=== PATIENT | female | born 2000 | race American Indian/Alaskan Native ===

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

== ENCOUNTER 2020-04-21 08:51 | Emergency (ER) | payer MEDICAID, OTHER ==
[2020-04-21] MEDS ORDERED: Naloxone 2 MG/2 ML Syringe IVPUSH ONE (08:55)
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
[2020-04-21] MEDS ORDERED: Sodium Chloride 0.9% 10 ML Syringe FLUSH PRN (08:56)
[2020-04-21] MEDS ORDERED: Sodium Chloride 0.9% 1,000 ML IV ONE (08:56)
[2020-04-21 09:27] LABS: AMPHETAMINES,URINE NEGATIVE (NEGATIVE); BARBITURATES,URINE NEGATIVE (NEGATIVE); BENZODIAZEPINE,URINE NEGATIVE (NEGATIVE); MDMA (ECSTASY), URINE NEGATIVE (NEGATIVE); METHADONE,URINE NEGATIVE (NEGATIVE); METHAMPHETAMINES,URINE NEGATIVE (NEGATIVE); OPIATES,URINE NEGATIVE (NEGATIVE); OXYCODONE,URINE NEGATIVE (NEGATIVE); PHENCYCLIDINE,URINE NEGATIVE (NEGATIVE); TCA,URINE NEGATIVE (NEGATIVE)
[2020-04-21 09:34] LABS: PTT,PARTIAL THROMBOPLSTIN TIME 24.5 SEC (22.0-34.0)
[2020-04-21 09:38] LABS: ANION GAP 16.9 mEq/L (7-13); CHLORIDE,CL 106 mmol/L (98-107); SODIUM,NA 141 mmol/L (136-145)
[2020-04-21] MEDS ORDERED: Iopamidol 612 MG/ML 100 ML Bottle IVPUSH ONE (09:38)
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
== END 2020-04-21 10:42 | disposition home or self-care (01) ==
LOC: DL.ED 08:51
DX: S00.81XA Abrasion of other part of head, initial encounter (principal); F10.120 Alcohol abuse with intoxication, uncomplicated; F17.210 Nicotine dependence, cigarettes, uncomplicated; Y90.7 Blood alcohol level of 200-239 mg/100 ml; V43.63XA Car passenger injured in collision with pick-up truck in traffic accident, initial encounter
CPT/HCPCS: 36415; 51702; 70450; 70486; 71260; 72125; 74177; 80053; 80305-QW; 80307; 81003; 81025; 82150; 83690; 85025; 85610; 85730; 93005; 93010; 96374; 99284; 99285-25; J2310; J7030; Q9967

== ENCOUNTER 2020-12-27 14:22 | Emergency (ER) | payer MEDICAID ==
--- NOTE | 2020-12-27 14:43 | EDM.PDOC ---
ED HPI GENERAL MEDICAL PROBLEM - General Stated Complaint: AMBULANCE Time Seen by Provider: 12/27/20 15:00 Source of Information: Reports: Patient History Limitations: Reports: No Limitations - History of Present Illness INITIAL COMMENTS - FREE TEXT/NARRATIVE: 20 y/o F brought in by EMS for near syncope at work. Pt was at a daycare when she developed R lower abd pn and felt her body go numb. Pt laid down on the floor and felt like she was going to pass out. She report no food today and had been drinking an energy drink which she does not do regularly. Currently she is symptom free here in the ER and would not like to be examined or treated. She would like to sign out AMA. She states she has been here several times and nothing was ever found. I informed her that we would be happy to work up her symptoms but she again declined and asked to leave. 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: Musculoskeletal History: Reports: None Neurological History: Reports: None Psychiatric History: Reports: Suicide Attempt Endocrine/Metabolic History: Reports: None Hematologic History: Reports: None Immunologic History: Reports: None Oncologic (Cancer) History: Reports: None Dermatologic History: Reports: None - Infectious Disease History Infectious Disease History: Reports: None - Past Surgical History Head Surgeries/Procedures: Reports: None HEENT Surgical History: Reports: None Social & Family History - Family History Family Medical History: No Pertinent Family History Respiratory: Reports: Asthma OBGYN: Reports: Other (See Below) Other OBGYN Family History: ovarian CA Endocrine/Metabolic: Reports: Diabetes, type II Other Endocrine/Metabolic Family History: grandmother and grandfather on mom's side. Oncologic: Reports: Cervix, Ovarian Other Oncologic Family History: mom - Caffeine Use Caffeine Use: Reports: None - Living Situation & Occupation Living situation: Reports: with Family Occupation: Student ED ROS GENERAL - Review of Systems Review Of Systems: Unable To Obtain Reason Not Obtained: left AMA - Physical Exam Exam: Not Obtained Reason Not Obtained: Left AMA Departure - Departure Time of Disposition: :04 Disposition: Against Medical Advice 07 Clinical Impression: Left against medical advice - Discharge Information *PRESCRIPTION DRUG MONITORING PROGRAM REVIEWED*: Not Applicable *COPY OF PRESCRIPTION DRUG MONITORING REPORT IN PATIENT GET: Not Applicable Forms: Refusal of Care AMA
[2020-12-27 15:01] VITALS: BP 99/61; PULSE 60
== END 2020-12-27 15:15 | disposition left against medical advice (07) ==
LOC: DL.ED 14:22
DX: R55 Syncope and collapse (principal); R10.31 Right lower quadrant pain
CPT/HCPCS: 99284

== ENCOUNTER 2021-03-23 11:32 | Day surgery (SDC) | payer MEDICAID ==
[~2021-03-23 11:32] MED LIST changes: +Lactated Ringers 1,000 ML IV SCH; -Misoprostol 50 MCG (1/2 of 100 MCG) Tab VAG ONE
[2021-03-23] MEDS ORDERED: Dexamethasone 4 MG/ML SDV IV ONE (11:33)
[2021-03-23] MEDS ORDERED: Ondansetron 4 MG/2 ML SDV IV ONE (11:33)
[2021-03-23] MEDS ORDERED: Propofol 200 MG/20 ML SDV IV ONE (11:33)
[2021-03-23] MEDS ORDERED: Midazolam 1 MG/ML 2 ML SDV IV ONE (11:33)
[2021-03-23] MEDS ORDERED: Ketorolac 30 MG/ML SDV IVPUSH ONE (11:33)
[2021-03-23] MEDS ORDERED: fentaNYL 100 MCG/2 ML SDV IV ONE (11:33)
[2021-03-23] MEDS ORDERED: Silver Nitrate Applicator Each ONE ×2 (11:38→11:39)
[2021-03-23] MEDS ORDERED: Ferric Subsulfate Topical Soln 8 GM (8 ML) Bottle ONE (11:38)
[2021-03-23] MEDS ORDERED: Oxytocin/Normal Saline 0 UNIT/0 ML BAG ONE (11:39)
[2021-03-23] MEDS ORDERED: Lidocaine 0.5% with EPINEPHrine 1:200,000 50 ML MDV ONE (11:39)
[2021-03-23] MEDS ORDERED: Doxycycline Monohydrate 100 MG Cap PO ONE (12:45)
--- NOTE | 2021-03-23 12:48 | PCM.HP ---
H&P History of Present Illness - General Date of Service: 03/23/21 - History of Present Illness Initial Comments - Free Text/Narative: Romie is a 20 year old with twin gestation spontaneous , presenting for D&C. - Related Data Allergies/Adverse Reactions: Allergies Allergy/AdvReac Type Severity Reaction Status Date / Time No Known Allergies Allergy Verified 03/23/21 08:03 Home Medications: Home Meds . 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 Musculoskeletal History: Reports: None Neurological History: Reports: None Psychiatric History: Reports: Suicide Attempt Endocrine/Metabolic History: Reports: None Hematologic History: Reports: None Immunologic History: Reports: None Oncologic (Cancer) History: Reports: None Dermatologic History: Reports: None - Infectious Disease History Infectious Disease History: Reports: Chicken Pox - Past Surgical History Head Surgeries/Procedures: Reports: None HEENT Surgical History: Reports: None Cardiovascular Surgical History: Reports: None Respiratory Surgical History: Reports: None GI Surgical History: Reports: None Female Surgical History: Reports: None Endocrine Surgical History: Reports: None Neurological Surgical History: Reports: None Musculoskeletal Surgical History: Reports: None Oncologic Surgical History: Reports: None Dermatological Surgical History: Reports: None Social & Family History - Family History Family Medical History: No Pertinent Family History Respiratory: Reports: Asthma OBGYN: Reports: Other (See Below) Other OBGYN Family History: ovarian CA Endocrine/Metabolic: Reports: Diabetes, type II Other Endocrine/Metabolic Family History: grandmother and grandfather on mom's side. Oncologic: Reports: Cervix, Ovarian Other Oncologic Family History: mom - Tobacco Use Tobacco Use Status *Q: Former Tobacco User - Caffeine Use Caffeine Use: Reports: None Other Caffeine Use: none - Recreational Drug Use Recreational Drug Use: No Drug Use in Last 12 Months: No - Living Situation & Occupation Living situation: Reports: with Family Occupation: Student Exam - Vital Signs Vital Signs: Last Vital Signs Temp 98.4 F 03/23/21 10:58 Pulse 68 03/23/21 10:58 Resp 16 03/23/21 10:58 BP 103/53 L 03/23/21 10:58 Pulse Ox 99 03/23/21 10:58 Weight: 60.781 kg - Patient Data Lab Results Last 24 hrs: Laboratory Results - last 24 hr 03/23/21 03/23/21 Range/Units 10:55 11:16 WBC 8.7 (5.0-10.0) 10^3/uL RBC 4.06 L (4.2-5.4) 10^6/uL Hgb 12.1 (12.0-16.0) g/dL Hct 35.2 L (37.0-47.0) % MCV 86.7 D (80-100) fL MCH 29.8 (27.0-34.0) pg MCHC 34.4 (33.0-35.0) g/dL Plt Count 314 (150-450) 10^3/uL SARS-CoV-2 RNA (JEREMY) Negative (NEGATIVE) Result Diagrams: 03/23/21 11:16 Orders Last 24hrs: Active Orders 24 hr Category Date Time Status Lactated Ringers [Ringers, Lactated] 1,000 ml Med 03/23/21 11:00 Active IV ASDIRECTED Medication Orders Lactated Ringer's (Ringers, Lactated) 1,000 mls @ 75 mls/hr IV ASDIRECTED HOLGER
--- NOTE | 2021-03-27 09:12 | OR ---
DATE: 03/23/2021 TIME: Approximately 1330 hours. CREDIT CARD ASSOCIATE: Jessica Fenton MS3 PREPROCEDURE DIAGNOSIS: Missed twin-gestation measuring 9 weeks 4 days' gestational age. POSTPROCEDURE DIAGNOSIS: Status post suction dilation and evacuation. PROCEDURE: Suction dilation and evacuation. FINDINGS: 10 to 12 weeks' size mobile uterus, normal shape and contour, anteverted, sounding to 11 cm in length, uterus involuted appropriately postoperatively. SPECIMENS: Products of conception. ANESTHESIA: MAC. COMPLICATIONS: None. FLUIDS: 900 mL crystalloid. DRAINS: Straight cath at onset of procedure for I think 25 mL of clear yellow urine. ESTIMATED BLOOD LOSS: 20 mL. INDICATION: Romie Miller is a 20-year-old G2, P1-0-1-1 woman, who presented to clinic earlier this week with Dr. Sanders following an ultrasound with the above findings of a missed in the setting of a twin gestation. Management options had been discussed with Dr. Sanders at that time. The patient elected to proceed with suction D and E for completion of her miscarriage. Please see preoperative H and P update for further details. Written informed consent was obtained. PROCEDURE IN DETAIL: The patient was taken to OR #2, where following patient identification, MAC anesthesia was placed without difficulty and found to be adequate. She was positioned in dorsal lithotomy position and her legs placed into a neurologically neutral position using the Yellofins. She received 200 mg oral doxycycline for infection prophylaxis. She was prepped and draped with an antiseptic solution in the usual sterile fashion. The patient's bladder was drained with a red rubber catheter using sterile technique, and following surgical time-out with all parties in agreement to proceed, Auvard and Garsia speculums were placed to visualize the cervix, which was grasped anteriorly with a tenaculum. The uterus was sounded to a depth of 11 cm, and the cervix was gently dilated with Hegar dilators to a dilation of 12 mm. A rigid, curved 12 mm Karman curette was advanced to the fundus gently and connected to the Timeliner electric aspirator, and the endometrium was curetted 4 separate times for return of a large amount of white and red tissue until the endometrium felt gritty throughout. The endometrium was then gently curetted with several gentle passes using the Garsia curette with return of minimal clot or decidua. Tenaculum sites remained hemostatic with pressure. Bleeding from the os was very minimal, and bimanual exam demonstrated an approximately [id number], firm, involuted, nonboggy uterus. Sponge, needle, and instrument counts were reported as correct x2. The patient did receive Toradol. The patient tolerated the procedure very well and was subsequently transferred to the recovery room in stable condition, where upon recovery she was discharged home in good condition. [facility] /[id number]
[2021-03-28 07:56] VITALS: BP 91/57; PULSE 67
== END 2021-03-23 15:15 | disposition home or self-care (01) ==
LOC: DL.SDS 11:32
PROVIDERS: ATTEND Student in an Organized Health Care Education/Training Program
DX: O02.1 Missed abortion (principal); Z3A.09 9 weeks gestation of pregnancy; Z01.812 Encounter for preprocedural laboratory examination; Z20.822 Contact with and (suspected) exposure to COVID-19
CPT/HCPCS: 36415; 59820; 85027; 87635; A9270; J1100; J1885; J2250; J2405; J2704; J3010; J7120; U0002

== ENCOUNTER 2022-07-23 00:01 | Inpatient (IN) | payer BC, MEDICAID ==
[2022-07-23] MEDS ORDERED: fentaNYL 100 MCG/2 ML SDV IVPUSH PRN (00:09)
[2022-07-23] MEDS ORDERED: Carboprost Tromethamine 250 MCG/1 ML Amp IM PRN (00:09)
[2022-07-23] MEDS ORDERED: Acetaminophen 325 MG Tab PO PRN ×2 (00:09→12:27)
[2022-07-23] MEDS ORDERED: Sodium Chloride 0.9% 10 ML Syringe FLUSH PRN (00:09)
[2022-07-23] MEDS ORDERED: Ondansetron 4 MG/2 ML SDV IVPUSH PRN (00:09)
[2022-07-23] MEDS ORDERED: Nalbuphine 20 MG/1 ML Amp IM PRN (00:09)
[2022-07-23] MEDS ORDERED: Tranexamic Acid 1,000 MG in Sodium Chloride 0.9% 100 ML IV PRN (00:09)
[2022-07-23] MEDS ORDERED: Misoprostol 400 MCG (4 X 100 MCG TAB) RECTAL PRN (00:09)
[2022-07-23] MEDS ORDERED: Methylergonovine 0.2 MG/1 ML Amp IM PRN (00:09)
[2022-07-23] MEDS ORDERED: Lidocaine 1% 30 ML SDV INJECT PRN (00:09)
[2022-07-23] MEDS ORDERED: Lactated Ringers 1,000 ML IV ONE (00:09)
[2022-07-23] MEDS ORDERED: Misoprostol 50 MCG (1/2 of 100 MCG) Tab VAG ONE (00:15)
[2022-07-23] MEDS ORDERED: Lactated Ringers 1,000 ML IV SCH (00:15)
[2022-07-23] MEDS ORDERED: Misoprostol 25 MCG (1/4 of 100 MCG) Tab VAG PRN (00:15)
[2022-07-23] MEDS ORDERED: Sodium Bicarbonate 4.2% 2.5 MEQ/5 ML SDV ONE (08:19)
[2022-07-23] MEDS ORDERED: Bupivacaine 0.25% 10 ML SDV ONE (08:19)
[2022-07-23] MEDS ORDERED: Ondansetron 4 MG/2 ML SDV IV ONE (08:22)
[2022-07-23] MEDS ORDERED: Sodium Bicarbonate 4.2% 2.5 MEQ/5 ML SDV IV ONE (09:05)
[2022-07-23] MEDS ORDERED: Bupivacaine 0.25% 10 ML SDV INJECT ONE (09:05)
[2022-07-23] MEDS ORDERED: ePHEDrine 50 MG/ML SDV IVPUSH PRN (09:22)
[2022-07-23] MEDS ORDERED: Phenylephrine HCl In 0.9% NaCl 1 MG/10 ML Syringe IVPUSH PRN (09:22)
[2022-07-23] MEDS ORDERED: Ropivacaine 200 MG in Premix Bag 1 BAG EPIDUR SCH (09:30)
[2022-07-23] MEDS: Oxytocin/Normal Saline 30 UNIT/500 ML BAG IV SCH ×2 (10:28→11:46)
[2022-07-23] MEDS ORDERED: Benzocaine/Menthol 20%-0.5% Spray 78 GM Cannister TOP PRN (12:27)
[2022-07-23] MEDS ORDERED: Simethicone 80 MG Tab.Chew PO PRN (12:27)
[2022-07-23] MEDS ORDERED: Oxytocin 10 Units/1 ML SDV IM PRN (12:27)
[2022-07-23] MEDS: Docusate Sodium 100 MG Cap PO PRN (23:22)
[2022-07-23] MEDS: Ibuprofen 800 MG Tab PO PRN (23:22)
[2022-07-24] MEDS ORDERED: Ferrous Sulfate 325 MG Tab PO SCH (08:00)
[2022-07-24] MEDS: Docusate Sodium 100 MG Cap PO PRN ×2 (08:20→20:57)
[2022-07-24] MEDS: Ibuprofen 800 MG Tab PO PRN ×2 (08:21→16:43)
[2022-07-24] MEDS: Prenatal Multivitamin with Calcium/Folic Acid/Iron Tab PO SCH (08:21)
[2022-07-25] MEDS: Ibuprofen 800 MG Tab PO PRN (02:54)
[2022-07-25 08:16] VITALS: BP 116/68; PULSE 60
[2022-07-25] MEDS: Prenatal Multivitamin with Calcium/Folic Acid/Iron Tab PO SCH (08:53)
[2022-07-25] MEDS: Docusate Sodium 100 MG Cap PO PRN (08:53)
[2022-07-25] MEDS ORDERED: Ferrous Sulfate 325 MG Tab PO SCH (09:00)
== END 2022-07-25 10:45 | disposition home or self-care (01) | DRG 560 ==
LOC: DL.OB 00:01 → OBSVTOIN 10:25
PROVIDERS: ADMIT Family Medicine; ATTEND Family Medicine
PROC: 10E0XZZ Delivery of Products of Conception, External Approach (ICD-10-PCS; principal; 2022-07-23)
PROC: 10907ZC Drainage of Amniotic Fluid, Therapeutic from Products of Conception, Via Natural or Artificial Opening (ICD-10-PCS; 2022-07-23)
PROC: 3E033VJ Introduction of Other Hormone into Peripheral Vein, Percutaneous Approach (ICD-10-PCS; 2022-07-23)
PROC: 3E0P7VZ Introduction of Hormone into Female Reproductive, Via Natural or Artificial Opening (ICD-10-PCS; 2022-07-23)
DX: O48.0 Post-term pregnancy (principal); O99.02 Anemia complicating childbirth; Q27.0 Congenital absence and hypoplasia of umbilical artery; O99.892 Other specified diseases and conditions complicating childbirth; D64.9 Anemia, unspecified; O70.0 First degree perineal laceration during delivery; O72.1 Other immediate postpartum hemorrhage; Z37.0 Single live birth; Z3A.40 40 weeks gestation of pregnancy
CPT/HCPCS: 01967; 36415; 59409; 85027; 86592; A9270-GY; J2210; J2405; J2590; J2795; J3490; J7120